=== PATIENT | male | born 1965 | race Caucasian/White ===

== ENCOUNTER 2021-04-23 10:05 | Emergency (ER) | payer MEDICAID ==
[~2021-04-23] VITALS: Ht 167.6 cm; Wt 100.0 kg
[2021-04-23] MEDS ORDERED: LORAZEPAM 2MG/ML CPJ IV STA (11:11)
[2021-04-23] MEDS ORDERED: LORAZEPAM 2MG/ML CPJ IV NR (11:15)
[2021-04-23] MEDS ORDERED: SODIUM CHLORIDE 0.9% 1,000 ML IV ONE (11:15)
[2021-04-23 11:46] LABS: BASOPHILS % 0.7 % (0.0-2.0); EOSINOPHILS % 11.9 % (0.0-5.0); HEMATOCRIT. 35.5 % (42.0-52.0); HEMOGLOBIN. 11.6 g/dL (14.0-18.0); LYMPHOCYTES % 14.1 % (20.0-50.0); MEAN CORPUSCULAR HEMOGLOBIN 29.6 pg (28.0-32.0); MEAN PLATELET VOLUME 6.3 fl (7.4-10.4); NEUTROPHILS % 63.3 % (40.0-76.0); PLATELET 152 x1000/uL (130-400)
[2021-04-23 11:59] LABS: CHLORIDE 103 mEq/L (98-107)
[2021-04-23] MEDS ORDERED: LIDOCAINE HCL 1% 20ML VIAL (Pyxis) INJ INFIL ONE (12:00)
[2021-04-23 12:01] LABS: INR 1.1
[2021-04-23 12:01] LABS: BG BASE EXCESS 2.8 mmol/L (-2.0-2.0); BG CARBOXYHEMOGLOBIN 0.3 % (0.5-1.5); BG DEOXYHEMOGLOBIN 7.8 % (0.0-5.0); BG FRACTION INSPIRED OXYGEN 21; BG METHEMOGLOBIN 0.1 % (0.0-1.5); BG OXYGEN SATURATION 92.2 % (92.0-98.5); BG OXYHEMOGLOBIN 91.8 % (94.0-97.0); BG PCO2 35.1 mmHg (35.0-45.0); BG PH 7.487 (7.350-7.450); BG PO2 61.5 mmHg (75.0-100.0); BG SAMPLE SITE RIGHT BRACHIAL; BG TOTAL HEMOGLOBIN 12.5 g/dL (12.0-18.0); BG VENT MODE ROOM AIR
[2021-04-23 12:07] LABS: ETHANOL BLOOD < 10 mg/dL
[2021-04-23] MEDS ORDERED: LORAZEPAM 2MG/ML CPJ IV ONE (18:15)
[2021-04-23 18:18] LABS: CLARITY URINE CLEAR (CLEAR); COLOR URINE YELLOW (YELLOW); KETONES URINE NEGATIVE (NEGATIVE); LEUKOCYTE ESTERASE URINE NEGATIVE (NEGATIVE); NITRITE URINE NEGATIVE (NEGATIVE); OCCULT BLOOD URINE NEGATIVE (NEGATIVE); PROTEIN URINE NEGATIVE (NEGATIVE); UROBILINOGEN URINE 0.2 E.U./dL (0.2-1.0)
[2021-04-23 18:56] LABS: *AMPHETAMINES SCREEN URINE NEGATIVE (NEGATIVE); *BARBITURATES SCREEN URINE NEGATIVE (NEGATIVE); *BENZODIAZEPINES SCREEN URINE PRESUMTIVE POSITIVE (NEGATIVE); *COCAINE SCREEN URINE NEGATIVE (NEGATIVE)
[2021-04-23 18:57] LABS: CANNABINOID URINE SCREEN NEGATIVE (NEGATIVE); METHADONE URINE SCREEN PRESUMTIVE POSITIVE (NEGATIVE); OPIATES URINE SCREEN NEGATIVE (NEGATIVE); PHENCYCLIDINE URINE SCREEN NEGATIVE (NEGATIVE)
[2021-04-23 21:50] VITALS: BP 149/82
== END 2021-04-23 22:00 | disposition left against medical advice (07) ==
LOC: ER 10:36 → MICUSO 17:07 → UNDOADMIN 17:07 → 6WST 21:11 → MICUSO 21:11
DX: G93.40 Encephalopathy, unspecified (principal); M47.892 Other spondylosis, cervical region; Z71.89 Other specified counseling
CPT/HCPCS: 12013; 36415; 36600; 70450; 71045; 72125; 80053; 80305; 80307; 80320; 80329; 81003; 82140; 82375; 82805; 82962; 83605; 83690; 83735; 83880; 84484; 85025; 85610; 93005; 96361; 96374; 96376; 99285; J2060; J7030; G0480